=== PATIENT | female | born 1970 | race Caucasian/White ===

== ENCOUNTER → 2024-05-19 | Outpatient (CLI) | payer BC ==
[2024-05-19 14:39] VITALS: BP 144/73; PULSE 66; RESP 16; TEMP 98.3; BMI 22.0
--- NOTE | 2024-05-19 14:59 | P.HPBAR ---
Bariatric H&P - History & Physicial H&P Date: 05/19/24 History & Physicial: Visit/CC: f/u Patient initial contact: Initial weight: Initial weight in pounds: Height: 5 ft 8 in Initial BMI: Last weight: Current weight: 65.771 kg Current weight in pounds: 145.00 Current BMI: 22.0 [place] body weight (based on NIH guidelines): 63.503 kg Excess body weight loss: The patient is a 53 year-old F who presents for Bariatric Assessment. She had bypass 12 years ago and had obstruction. She has been doing well. She needs colonoscopy. Highest weight 270 pounds. She got had weight gain with gestational diabetes. Gallbladder was out. She was on insulin. No more insulin. Pain at the left upper quadrant. Surgery 08/05/12. She is 12 years. Recommend labs. Her B12 is low. She has redundant skin, grade 3. Needs CT scan. Needs lysis of adhesions. She was prescribed depression. Needs colonoscopy. EGD. History of bowel obstruction with similar symptoms. Past Medical History Past Medical History: Diabetes Mellitus, GERD/Reflux Additional Past Medical History / Comment(s): Diabetic before gastric bypass History of Any Multi-Drug Resistant Organisms: None Reported Past Surgical History: Bariatric Surgery, Cholecystectomy, Tubal Ligation Additional Past Surgical History / Comment(s): Gastric Bypass 2011, Twisted Bowel- surgically fixed, shoulder manipulation rt Past Anesthesia/Blood Transfusion Reactions: Postoperative Nausea & Vomiting (PONV) Past Psychological History: No Psychological Hx Reported Smoking Status: Former smoker Past Alcohol Use History: Occasional Past Drug Use History: Marijuana - Past Family History Mother Family Medical History: Hypertension Father Family Medical History: Cancer Additional Family Medical History / Comment(s): esophageal CA Surgical - Exam Vital Signs Temp Pulse Resp BP 98.3 F 66 16 144/73 05/19/24 14:24 05/19/24 14:24 05/19/24 14:24 05/19/24 14:24 Bariatric Checklist Checklist: Plan: Checklist: EGD: 1. Hiatal hernia: 2. H. Pylori: HgbA1c: Vitamin D: Smoking: Primary care physician referral: iman campos ORDNANCE ENGINEERING TECHNICIAN for Dr. Monteiro Psychiatry clearance: Cardiology clearance: Sleep study: Diet journal: VTE risk score: VTE risk level: Rehab needs at discharge:
[2024-05-19 16:34] LABS: INR 0.9 (<1.2); Partial Thromboplastin Time 22.6 sec (22.0-30.0); Prothrombin Time 10.2 sec (10.0-12.5)
[2024-05-20 02:14] LABS: HCT 35.6 % (37.2-46.3); HGB 10.4 g/dL (12.0-15.0); MCH 23.7 pg (27.0-32.0); MCHC 29.2 g/dL (32.0-37.0); MCV 81.3 FL (80.0-97.0); Mean Platelet Volume 10.3 FL (9.5-12.2); NRBC Per 100 WBC 0 X 10*3/uL (0.00-0.01); Platelet Count 465 X 10*3/uL (140-440); RBC 4.38 X 10*6/uL (4.10-5.20); RDW 17.4 % (11.5-14.5); WBC 8.84 X 10*3/uL (4.50-10.00)
[2024-05-20 03:34] LABS: Prealbumin 21.2 mg/dL (18.0-42.0)
[2024-05-20 04:10] LABS: % Iron Saturation 2.26 (12.00-45.00); ALT 21 U/L (8-44); AST 26 U/L (13-35); Albumin 4.4 g/dL (3.8-4.9); Albumin/Globulin Ratio 1.76 Ratio (1.60-3.17); Alkaline Phosphatase 53 U/L (41-126); Blood Urea Nitrogen 8.4 mg/dL (9.0-27.0); Calcium 9.3 mg/dL (8.7-10.3); Carbon Dioxide 25.3 mmol/L (21.6-31.8); Chloride 104 mmol/L (96-109); Chol/HDL Ratio 2.78 Ratio; Ferritin 5.5 ng/mL (10.0-291.0); Globulin 2.5 g/dL (1.6-3.3); Glucose 80 mg/dL (70-110); Iron 13 UG/DL (50-170); LDL Cholesterol,Calculated 96.7 mg/dL (0.0-131.0); Phosphorus 3.7 mg/dL (2.4-5.1); Potassium 4.6 mmol/L (3.5-5.5); Sodium 141 mmol/L (135-145); Total Bilirubin 0.2 mg/dL (0.3-1.2); Total Iron Binding Capacity 575 UG/DL (228-460); Total Protein 6.9 g/dL (6.2-8.2)
[2024-05-21 11:37] LABS: Vitamin A 44 ug/dL (38-106)
[2024-05-21 11:43] LABS: Vit B1(Thiamine) 50 ug/L (38-122)
[2024-05-22 10:19] LABS: Anabasine Urine <2.0 ng/mL (<2.0)
[2024-05-28 15:13] LABS: Zinc, Serum 53 ug/dL (60-130)
== END ==
LOC: BARWHC3 13:57
PROVIDERS: ATTEND Surgery Plastic and Reconstructive Surgery
DX: E66.01 Morbid (severe) obesity due to excess calories (principal); D50.8 Other iron deficiency anemias; E89.1 Postprocedural hypoinsulinemia; K90.89 Other intestinal malabsorption; K74.1 Hepatic sclerosis; E55.9 Vitamin D deficiency, unspecified; N19 Unspecified kidney failure; R00.1 Bradycardia, unspecified; T56.894A Toxic effect of other metals, undetermined, initial encounter; K50.90 Crohn's disease, unspecified, without complications; Z87.891 Personal history of nicotine dependence; Z98.84 Bariatric surgery status; Z68.22 Body mass index [BMI] 22.0-22.9, adult
CPT/HCPCS: 84134; 84425; 80061; 80053; 82607; 82728; 82525; 82746; 83540; 83550; 83735; 84100; 84443; 84590; 84630; 85027; 85610; 85730; 82306; 83970; 83036; 80307; 93005; G0480; G0463; 80323; 99202

== ENCOUNTER → 2024-05-28 | Outpatient (CLI) | payer BC ==
--- NOTE | 2024-05-28 09:38 | CT ---
EXAMINATION TYPE: CT abdomen pelvis w con CT DLP: 526 mGycm, Automated exposure control for dose reduction was used. DATE OF EXAM: 05/28/2024 9:10 AM COMPARISON: CT abdomen pelvis most recent from CLINICAL INDICATION: Female, 53 years old with history of K56.609 UNSP INTESTNL OBST, UNSP TO PART IAL KARELY; History of bariartric surgery, twisted bowel. pain TECHNIQUE: Axial CT abdomen pelvis w con;Sagittal and coronal reformats were created on a separate w orkstation. Contrast used:100 mL of Isovue 300 with IV Contrast, (none if empty) Oral contrast used: with Oral Contrast (none if empty) FINDINGS: LOWER CHEST: Unremarkable ABDOMEN LIVER: Unremarkable GALLBLADDER AND BILE DUCTS: Cholecystectomy clips present. Mild central pneumobilia PANCREAS: Unremarkable. SPLEEN: Unremarkable. ADRENAL GLANDS: Unremarkable. KIDNEYS AND URETERS: No evidence of hydronephrosis or renal calculus. The ureters are unremarkable. PELVIS BLADDER: Unremarkable REPRODUCTIVE: Unremarkable. ABDOMEN & PELVIS STOMACH AND BOWEL: Postsurgical changes to the stomach and small bowel. No evidence for obstruction. No evidence of bowel obstruction. PERITONEUM/RETROPERITONEUM: No evidence of pneumoperitoneum or free fluid. VASCULATURE: Mild atherosclerotic calcifications are present throughout the abdominal aorta and its b ranches. No evidence of aortic aneurysm. MUSCULOSKELETAL: No acute osseous abnormalities LYMPH NODES: No gross evidence for lymphadenopathy. SOFT TISSUE/ABDOMINAL WALL: Unremarkable IMPRESSION: 1. Post surgical changes to the stomach and small bowel compatible with history of bariatric surgery . No evidence for obstruction or acute processes definitively visualized. 2. Mild central pneumobilia correlate for patulous sphincter oddi. [facility], , 05/28/2024 9:35 AM
== END | disposition home or self-care (01) ==
LOC: RADCTMAIN 07:21
PROVIDERS: ATTEND Surgery Plastic and Reconstructive Surgery
DX: K56.609 Unspecified intestinal obstruction, unspecified as to partial versus complete obstruction (principal); Z98.84 Bariatric surgery status
CPT/HCPCS: 74177; Q9967

== ENCOUNTER → 2024-06-02 | Outpatient (CLI) | payer BC ==
[2024-06-02 17:10] VITALS: BP 124/71; PULSE 63; RESP 16; TEMP 98; BMI 21.9
--- NOTE | 2024-06-02 17:18 | P.BASOAP ---
Subjective Progress Note Date: 06/02/24 Labs reviewed. Needs iron infusions for extremely low iron. Vitamin D. Zinc 50 mcg. Has intussception on CT scan. Needs lysis of adhesions. Needs EGD and colonoscopy. Objective - Vital Signs Vital signs: Vital Signs Temp 98.0 F 06/02/24 17:06 Pulse 63 06/02/24 17:06 Resp 16 06/02/24 17:06 BP 124/71 06/02/24 17:06 Pulse Ox FiO2 Intake & Output 06/01/24 06/02/24 06/02/24 18:59 06:59 18:59 Weight 65.317 kg Assessment/Plan Plan: Date: 06/02/24 Initial Weight: Initial BMI: Current Weight: 65.317 kg Current BMI: 21.9 Type of Surgery: Total Volume in Band: Previous Volume: Volume Removed: Volume Added: Band Size:
== END ==
LOC: BARWHC3 15:09
PROVIDERS: ATTEND Surgery Plastic and Reconstructive Surgery
DX: E66.01 Morbid (severe) obesity due to excess calories (principal); Z68.21 Body mass index [BMI] 21.0-21.9, adult
CPT/HCPCS: 99211

== ENCOUNTER 2024-06-28 06:29 | Day surgery (SDC) | payer BC ==
[2024-06-28 07:19] VITALS: TEMP 97.3
[2024-06-28] MEDS: IV FLUID CONTINUATION 1,000 ML IV ONE (07:20)
[2024-06-28] MEDS: ONDANSETRON 4 MG/2 ML VIAL IVP STA (07:21)
[2024-06-28] MEDS: LACTATED RINGERS 1,000 ML IV SCH (07:22)
[2024-06-28] MEDS ORDERED: LIDOCAINE 1% INJ 10MG/ML (20 ML MDV) ONE (07:41)
[2024-06-28] MEDS ORDERED: PROPOFOL 10 MG/ML 20 ML VIAL IV ONE (07:41)
--- NOTE | 2024-06-28 07:46 | P.GSHP ---
History of Present Illness H&P Date: 06/28/24 CHIEF COMPLAINT: GERD and colon screen HISTORY OF PRESENT ILLNESS: The patient is a 53-year-old female who presents with gastroesophageal reflux disease and need for colon screen. Upper and lower endoscopy were offered for further evaluation and management. PAST MEDICAL HISTORY: Please see list. PAST SURGICAL HISTORY: Please see list. MEDICATIONS: Please see list. ALLERGIES: Please see list. SOCIAL HISTORY: No illicit drug use FAMILY HISTORY: No reports of Crohn disease or ulcerative colitis. REVIEW OF ORGAN SYSTEMS: CONSTITUTIONAL: No reports of fevers or chills. GI: Denies any blood in stools or constipation. PHYSICAL EXAM: VITAL SIGNS: Stable GENERAL: Well-developed pleasant in no acute distress. HEENT: No scleral icterus. Extraocular movements grossly intact. Moist buccal mucosa. NECK: Supple without lymphadenopathy. CHEST: Unlabored respirations. Equal bilateral excursions. CARDIOVASCULAR: Regular rate and rhythm. Distal 2+ pulses. ABDOMEN: Soft, nondistended. MUSCULOSKELETAL: No clubbing, cyanosis, or edema. ASSESSMENT: 1. Gastroesophageal reflux disease 2. Colon screen. PLAN: 1. Recommend proceeding with an upper and lower endoscopy Past Medical History Past Medical History: GERD/Reflux Additional Past Medical History / Comment(s): hx of type 2 diabetes before gastric bypass ( 12 yrs ago) no meds since.. abd pain "twisted up" after gastric bypass. hx of anemia had iron transfusion 06/22/24 and vitamin B12 shot. aches and pains. History of Any Multi-Drug Resistant Organisms: None Reported Past Surgical History: Bariatric Surgery, Cholecystectomy, Tubal Ligation Additional Past Surgical History / Comment(s): Gastric Bypass 2011, Twisted Bowel- surgically fixed, shoulder manipulation rt Past Anesthesia/Blood Transfusion Reactions: Postoperative Nausea & Vomiting (PONV) Smoking Status: Former smoker, Light tobacco smoker - Past Family History Mother Family Medical History: Hypertension Father Family Medical History: Cancer, Coronary Artery Disease (CAD) Additional Family Medical History / Comment(s): esophageal CA Medications and Allergies Home Medications Medication Instructions Recorded Confirmed Type Cholecalciferol (Vitamin D3) 125 mcg PO DAILY 06/22/24 06/24/24 History [Vitamin D3 (125 MCG = 5,000 IU)] Zinc Gluconate [Zinc] 50 mg PO DAILY 06/22/24 06/24/24 History C-[employer] Nutrition Collagen 1 scoop PO DAILY 06/24/24 06/24/24 History Allergies Allergy/AdvReac Type Severity Reaction Status Date / Time No Known Allergies Allergy Verified 06/28/24 07:18 Surgical - Exam Vital Signs Temp Pulse Resp BP Pulse Ox 97.3 F L 59 L 16 128/76 99 06/28/24 07:18 06/28/24 07:18 06/28/24 07:18 06/28/24 07:18 06/28/24 07:18
--- NOTE | 2024-06-28 08:24 | P.PCN ---
Date of Procedure: 06/28/24 Description of Procedure: PREOPERATIVE DIAGNOSIS: Colonoscopy screening. POSTOPERATIVE DIAGNOSIS: Colonoscopy screening. Diverticulosis, scattered. OPERATION: Colonoscopy to the cecum, ileocecal valve and appendiceal orifice. SURGEON: Cecilia Aldrich MD. ANESTHESIA: MAC. INDICATIONS: The patient is a 53-year-old female who presents for colonoscopy screening. Benefits and risks were described and informed consent was obtained. DESCRIPTION OF PROCEDURE: The patient had undergone Sutab prep. The patient had been brought into the operating room and laid in the left lateral decubitus position. After adequate intravenous sedation, the rectum was examined with 2% lidocaine jelly. No external hemorrhoids were encountered. The rectal tone was within normal limits. No lesions were palpated in the rectal vault. An Olympus colonoscope was advanced until the cecum, ileocecal valve and appendiceal orifice were clearly viewed. The prep was excellent. Scattered diverticulosis was encountered. No colonic polyps were found. No evidence of focal colitis was found. Retroflexion of the scope demonstrated grade 1 internal hemorrhoids without active bleeding or inflammation. The colon was desufflated. The patient had tolerated the procedure well. Withdrawal time was over 6 minutes. FINDINGS: Aronchick preparation quality scale 1 (1-5) Internal hemorrhoids, grade 1 No external prolapsed hemorrhoids. No arteriovenous malformations. No adenomatous polyps. No focal colitis. Sigmoid diverticulosis RECOMMENDATIONS: Lower endoscopy in 5 years, 2028 Plan - Discharge Summary Discharge Rx Participant: No New Discharge Prescriptions: Continue Cholecalciferol (Vitamin D3) [Vitamin D3 (125 MCG = 5,000 IU)] 125 mcg PO DAILY Zinc Gluconate [Zinc] 50 mg PO DAILY Unk Ancient Nutrition Collagen 1 scoop PO DAILY Discharge Medication List Cholecalciferol (Vitamin D3) [Vitamin D3 (125 MCG = 5,000 IU)] 125 mcg PO DAILY 06/22/24 [History] Zinc Gluconate [Zinc] 50 mg PO DAILY 06/22/24 [History] Unk Ancient Nutrition Collagen 1 scoop PO DAILY 06/24/24 [History] [place]s[place]Ref[place] 07/14/24 3:00 pm Patient Instructions/Handouts: Diverticulosis Diet (GEN), Diverticulosis (ED), Peptic Ulcer (DC), Esophageal Dilation (DC) Activity/Diet/Wound Care/Special Instructions: Repeat colonoscopy 5 years, 2028 Discharge Disposition: HOME SELF-CARE
--- NOTE | 2024-06-28 08:26 | P.PCN ---
Date of Procedure: 06/28/24 Description of Procedure: PREOPERATIVE DIAGNOSIS: Dysphagia. Nausea with vomiting. POSTOPERATIVE DIAGNOSIS: Dysphagia. Gastrojejunal stricture with chronic ulcer without perforation OPERATION: Esophagogastrojejunoscopy with balloon dilatation from 18 to 20 mm. Esophagogastrojejunoscopy with cold forcep biopsies esophagus, gastric pouch, jejunum SURGEON: Cecilia Aldrich MD ANESTHESIA: MAC. INDICATIONS: The patient is a 53-year-old female who presents with a history of dysphagia, including new-onset nausea and vomiting. Benefits and risks of the procedure were described. Informed consent was obtained. DESCRIPTION: The patient was brought into the endoscopy suite and laid in the left lateral d ecubitus position. After a timeout was confirmed, the procedure was initiated. An Olympus gastroscope was passed along the posterior oropharynx down to the distal esophagus where the squamocolumnar junction was unremarkable. The gastric pouch was entered. A gastrojejunal stricture of 18 mm was found as the adult gastroscope was 9.5 mm in size. A [employer] balloon dilator was placed through the scope. Final insufflation up to 20 mm was performed with a total of 2 minutes. The scope was advanced up to 60 cm from the incisors into the Kelly limb. The mucosa of the gastrojejunal anastomosis was intact. Cold biopsies were obtained of the esophagus, gastric pouch and jejunum. However chronic gastrojejunal marginal ulcer was encountered. No full-thickness injury was encountered. The GI tract was desufflated. The patient tolerated the procedure well. FINDINGS: Squamocolumnar junction unremarkable at 37 cm. Stricture of approximately 18 mm encountered. Chronic gastrojejunal ulceration encountered at anastomosis, 2 mm x 2. Successful balloon dilatation to 20 mm. Blind jejunal limb 5 cm length Gastric pouch 2 cm in length Biopsies obtained of gastric pouch, esophagus, jejunum RECOMMENDATIONS: Omeprazole and Carafate for 4 weeks Upper endoscopy as needed.
[2024-06-28 08:45] VITALS: BP 108/69; PULSE 54; RESP 20
== END 2024-06-28 09:09 | disposition home or self-care (01) ==
LOC: ORWHC2ENDO 06:29
PROVIDERS: ATTEND Surgery Plastic and Reconstructive Surgery
DX: Z12.11 Encounter for screening for malignant neoplasm of colon (principal); K29.50 Unspecified chronic gastritis without bleeding; K31.7 Polyp of stomach and duodenum; K56.699 Other intestinal obstruction unspecified as to partial versus complete obstruction; K21.9 Gastro-esophageal reflux disease without esophagitis; K57.30 Diverticulosis of large intestine without perforation or abscess without bleeding; K64.0 First degree hemorrhoids; E11.9 Type 2 diabetes mellitus without complications; Z82.49 Family history of ischemic heart disease and other diseases of the circulatory system; Z87.891 Personal history of nicotine dependence; Z90.49 Acquired absence of other specified parts of digestive tract; Z98.51 Tubal ligation status; Z98.84 Bariatric surgery status
CPT/HCPCS: 81025; 88305; 45378; 43239; 43245; J2405; J2003; J2704; C1726; 43249

== ENCOUNTER → 2024-07-14 | Outpatient (CLI) | payer BC ==
[2024-07-14 15:27] VITALS: BMI 21.6
[2024-07-14 15:28] VITALS: BP 113/72; PULSE 59; RESP 16; TEMP 98.1
--- NOTE | 2024-07-14 16:12 | P.BASOAP ---
Subjective Progress Note Date: 07/14/24 Decreased sticking . EGD reviewed. Getting infusions. B-complex supplement needed. No heartburn. Weight is stable. Protein is 16 to 20 grams. She states she does not eat. Needs structured environment. Has consitent pain, needs lysis of adhesions. Objective - Vital Signs Vital signs: Vital Signs Temp 98.1 F 07/14/24 15:19 Pulse 59 L 07/14/24 15:19 Resp 16 07/14/24 15:19 BP 113/72 07/14/24 15:19 Pulse Ox FiO2 Intake & Output 07/13/24 07/14/24 07/14/24 18:59 06:59 18:59 Weight 64.41 kg Assessment/Plan Plan: Date: 07/14/24 Initial Weight: Initial BMI: Current Weight: 64.41 kg Current BMI: 21.6 Type of Surgery: Total Volume in Band: Previous Volume: Volume Removed: Volume Added: Band Size:
== END ==
LOC: BARWHC3 14:43
PROVIDERS: ATTEND Surgery Plastic and Reconstructive Surgery
DX: E66.01 Morbid (severe) obesity due to excess calories (principal); Z68.21 Body mass index [BMI] 21.0-21.9, adult
CPT/HCPCS: 99211

== ENCOUNTER → 2024-08-05 | Outpatient (CLI) | payer BC ==
[2024-08-05 19:12] LABS: HCT 43.7 % (37.2-46.3); HGB 13.8 g/dL (12.0-15.0); MCH 27.9 pg (27.0-32.0); MCHC 31.6 g/dL (32.0-37.0); MCV 88.5 FL (80.0-97.0); Mean Platelet Volume 9.6 FL (9.5-12.2); NRBC Per 100 WBC 0 X 10*3/uL (0.00-0.01); Platelet Count 365 X 10*3/uL (140-440); RBC 4.94 X 10*6/uL (4.10-5.20); RDW 23.1 % (11.5-14.5); WBC 8.51 X 10*3/uL (4.50-10.00)
[2024-08-05 19:32] LABS: % Iron Saturation 23.57 (12.00-45.00); ALT 26 U/L (8-44); AST 28 U/L (13-35); Albumin 4.4 g/dL (3.8-4.9); Albumin/Globulin Ratio 1.63 Ratio (1.60-3.17); Alkaline Phosphatase 52 U/L (41-126); Blood Urea Nitrogen 11.5 mg/dL (9.0-27.0); Calcium 9.5 mg/dL (8.7-10.3); Chloride 104 mmol/L (96-109); Ferritin 55.1 ng/mL (10.0-291.0); Globulin 2.7 g/dL (1.6-3.3); Glucose 99 mg/dL (70-110); Iron 95 UG/DL (50-170); Potassium 4.5 mmol/L (3.5-5.5); Sodium 142 mmol/L (135-145); Total Bilirubin 0.3 mg/dL (0.3-1.2); Total Iron Binding Capacity 403 UG/DL (228-460); Total Protein 7.1 g/dL (6.2-8.2)
[2024-08-05 19:46] LABS: Anisocytosis (M) 2+ (None Seen); Basophils # (A) 0.05 X 10*3/uL (0.00-0.10); Basophils % (A) 0.6 %; Eosinophils # (A) 0.15 X 10*3/uL (0.04-0.35); Eosinophils % (A) 1.8 %; Lymphocytes # (A) 2.75 X 10*3/uL (0.90-5.00); Lymphocytes % (A) 32.3 %; Monocytes # (A) 0.56 X 10*3/uL (0.20-1.00); Monocytes % (A) 6.6 %; Neutrophils # (A) 4.99 X 10*3/uL (1.80-7.70); Neutrophils % (A) 58.6 %
== END | disposition home or self-care (01) ==
LOC: LABPAT 13:25
PROVIDERS: ATTEND Surgery Plastic and Reconstructive Surgery
DX: Z01.818 Encounter for other preprocedural examination (principal); E61.1 Iron deficiency
CPT/HCPCS: 80053; 82728; 83540; 83550; 85025; 86850; 86900; 86901

== ENCOUNTER 2024-08-16 09:47 | Day surgery (SDC) | payer BC ==
[~2024-08-16 09:47] MED LIST: HYDROmorphone 0.5 MG/0.5 ML SYRINGE IVP PRN; LIDOCAINE 1% (10MG/ML) FOR IV START INTRADERMA PRN; Pre Op ABX Message 1 EACH MISC MISCELLANE ONE; droPERidol 5 MG/2 ML VIAL IVP ONE
[2024-08-16] MEDS: IV FLUID CONTINUATION 1,000 ML IV ONE (10:35)
[2024-08-16] MEDS: LACTATED RINGERS 1,000 ML IV SCH (10:35)
[2024-08-16] MEDS: DEXAMETHASONE SOD PHOSPHATE 4 MG/ML 1 ML VIAL IV ONE (10:40)
[2024-08-16] MEDS: SCOPOLAMINE 1 MG/72 HR PATCH TRANSDERM ONE (10:40)
[2024-08-16] MEDS: ONDANSETRON 4 MG/2 ML VIAL IVP ONE (10:41)
[2024-08-16 10:47] VITALS: TEMP 97.8
[2024-08-16] MEDS: ACETAMINOPHEN TAB 500 MG TAB PO STA (11:53)
[2024-08-16] MEDS: HEPARIN SODIUM,PORCINE 5,000 UNIT/ML 1 ML VIAL SQ STA (11:54)
[2024-08-16] MEDS ORDERED: ROCURONIUM 10 MG/ML (5 ML VIAL) IV ONE (12:03)
[2024-08-16] MEDS ORDERED: SUCCINYLCHOLINE CHLORIDE 200 MG/10 ML VIAL IV ONE (12:03)
[2024-08-16] MEDS ORDERED: GLYCOPYRROLATE 0.2 MG/ML 2 ML VIAL ONE (12:03)
[2024-08-16] MEDS ORDERED: fentaNYL (PF) 50 MCG/ML 2 ML AMP ONE (12:03)
[2024-08-16] MEDS ORDERED: PHENYLEPHRINE-0.9% NACL SYG 1,000 MCG/10 ML SYRINGE ONE (12:03)
[2024-08-16] MEDS ORDERED: MIDAZOLAM 2 MG/2 ML VIAL ONE (12:03)
[2024-08-16] MEDS ORDERED: HYDROmorphone (PF) 1 MG/ML ONE (12:03)
[2024-08-16] MEDS ORDERED: ceFAZolin 1 GM/50 ML BAG (PMX) ONE (12:03)
[2024-08-16] MEDS ORDERED: PROPOFOL 10 MG/ML 20 ML VIAL IV ONE (12:03)
[2024-08-16] MEDS ORDERED: LIDOCAINE 1% INJ 10MG/ML (20 ML MDV) ONE (12:03)
[2024-08-16] MEDS ORDERED: NEOSTIGMINE 1 MG/ML 10 ML VIAL ONE (12:03)
[2024-08-16] MEDS: ceFAZolin 1,000 MG VIAL IVPB ONE (12:30)
[2024-08-16] MEDS: LIDOCAINE 1%-EPI 1:100,000 20 ML VIAL SQ ONE ×2 (12:39)
[2024-08-16] MEDS: LACTATED RINGERS 1,000 ML IV ONE ×2 (13:24→15:51)
[2024-08-16 13:49] VITALS: RESP 16
[2024-08-16] MEDS: KETOROLAC 15 MG/ML 1 ML VIAL IVP STA (13:55)
--- NOTE | 2024-08-16 14:04 | P.GSHP ---
History of Present Illness H&P Date: 08/16/24 CHIEF COMPLAINT: History of intra-abdominal adhesions HISTORY OF PRESENT ILLNESS: The patient is a 53-year-old female who presents with history of intra-abdominal adhesions from multiple prior surgeries including increasing abdominal pain for over 3 months. She has personal history of gastric bypass as well. She complains primarily of left upper quadrant pain as well as right lower quadrant and periumbilical pain. She now presents for diagnostic laparoscopy including lysis of adhesions. PAST MEDICAL HISTORY: Please see list. PAST SURGICAL HISTORY: Please see list. MEDICATIONS: Please see list. ALLERGIES: Please see list. SOCIAL HISTORY: No illicit drug use FAMILY HISTORY: No reports of Crohn disease or ulcerative colitis. REVIEW OF ORGAN SYSTEMS: CONSTITUTIONAL: Denies any fever or chills. Intentional weight loss following gastric bypass over 150 pounds. HEENT: Denies any trouble with vision, hearing or nosebleeds. No difficulty swallowing. LYMPHATIC: The patient denies any lumps and bumps around the neck. ENDOCRINE: Denies any thyroid disorders. Denies any blood sugar glucose intolerance. RESPIRATORY: Denies pneumonia. Denies any troubles with breathing or dyspnea on exertion. CARDIOVASCULAR: Denies any chest pain, palpitations, or recent heart attacks. GASTROINTESTINAL: Has change in bowel habits. History of gastric bypass. GENITOURINARY: Denies any blood in urine or increased urinary frequency. MUSCULOSKELETAL: Denies any back pain, stiffness, joint arthritis. NEUROLOGIC: Denies any numbness or tingling along the distal extremities. No seizure disorders or headaches. PSYCHIATRIC: Denies depression or suidical ideation. HEMATOLOGIC: Denies any abnormal bleeding or bruising. BREASTS: Denies any breast lumps, pain or nipple discharge. PHYSICAL EXAM: GENERAL: Well-developed pleasant male in no acute distress. HEENT: No scleral icterus. Extraocular movements grossly intact. Moist buccal mucosa. NECK: Supple without lymphadenopathy. CHEST: Unlabored respirations. Equal bilateral excursions. CARDIOVASCULAR: Regular rate and rhythm. Distal 2+ pulses. ABDOMEN: Soft, nondistended. Moderate skin redundancy. Tender at the left upper chest wall upper abdomen, periumbilical, right lateral abdominal wall. MUSCULOSKELETAL: No clubbing, cyanosis, or edema. SKIN: Well perfused. PSYCH: Alert and oriented to self, place and time ASSESSMENT: 1. Diffuse abdominal pain. 2. History of multiple abdominal surgeries. 3. Intra-abdominal adhesions. PLAN: 1. Robotic lysis of adhesions were described in detail including risk of injury to the intestine, need for further surgery, and open technique. 2. DVT prophylaxis. 3. Antibiotic prophylaxis. Past Medical History Past Medical History: GERD/Reflux Additional Past Medical History / Comment(s): hx of type 2 diabetes before gastric bypass ( 12 yrs ago) no meds since.. abd pain "twisted up" after gastric bypass. hx of anemia had iron transfusion 06/22/24 and vitamin B12 shot. aches and pains. History of Any Multi-Drug Resistant Organisms: None Reported Past Surgical History: Bariatric Surgery, Cholecystectomy, Tubal Ligation Additional Past Surgical History / Comment(s): Gastric Bypass 2011, Twisted Bowel- surgically fixed, shoulder manipulation rt Past Anesthesia/Blood Transfusion Reactions: Postoperative Nausea & Vomiting (PONV) Smoking Status: Former smoker - Past Family History Mother Family Medical History: Hypertension Father Family Medical History: Cancer, Coronary Artery Disease (CAD) Additional Family Medical History / Comment(s): esophageal CA Medications and Allergies Home Medications Medication Instructions Recorded Confirmed Type Cholecalciferol (Vitamin D3) 125 mcg PO DAILY 06/22/24 08/12/24 History [Vitamin D3 (125 MCG = 5,000 IU)] Zinc Gluconate [Zinc] 50 mg PO DAILY 06/22/24 08/12/24 History Unk Ancient Nutrition Collagen 1 scoop PO DAILY 06/24/24 08/12/24 History Cyanocobalamin [Vitamin B-12 1,000 mcg SQ QMONTHLY 08/12/24 08/12/24 History Injection] Acetaminophen Tab [Tylenol Tab] 1,000 mg PO Q6HR PRN #30 tablet 08/16/24 Rx Cyclobenzaprine [Flexeril] 10 mg PO TID #30 tab 08/16/24 Rx Simethicone [Gas-X] 125 mg PO AC-TID PRN #20 capsule 08/16/24 Rx Allergies Allergy/AdvReac Type Severity Reaction Status Date / Time No Known Allergies Allergy Verified 08/16/24 10:19 Surgical - Exam Vital Signs Temp Pulse Resp BP Pulse Ox 97.8 F 65 18 93/63 99 08/16/24 10:31 08/16/24 10:31 08/16/24 10:31 08/16/24 10:31 08/16/24 10:31
[2024-08-16 16:04] VITALS: BP 111/63; PULSE 62
--- NOTE | 2024-08-16 16:54 | P.OP ---
Date of Procedure: 08/16/24 Description of Procedure: SURGEON: SONU GURROLA MD SANDWICH PEDDLER: SCOOTER PREOPERATIVE DIAGNOSES: 1. Epigastric abdominal pain 2. Left upper quadrant abdominal pain 3. History of gastric bypass 4. Left upper back pain 5. Gastroesophageal reflux disease 6. History of internal hernia 7. Postop nausea vomiting 8. Iron deficiency anemia 9. Right sided abdominal pain POSTOPERATIVE DIAGNOSES: 1. Epigastric abdominal pain due to recent internal hernia 2. Left upper quadrant abdominal pain, due to mesenteric internal hernia 3. History of gastric bypass 4. Left upper back pain due to highly redundant splenic flexure 5. Gastroesophageal reflux disease 6. History of internal hernia 7. Postop nausea vomiting 8. Iron deficiency anemia 9. Right sided abdominal pain 10. Small bowel volvulus OPERATION: 1. Robotic-assisted da Chang Xi laparoscopic closure of internal hernia, je junojejunostomy mesenteric defect, left abdomen 2. Robotic-assisted da Chang Xi laparoscopic reduction of small bowel volvulus ESTIMATED BLOOD LOSS: 5 mL. SPECIMENS REMOVED: None. COMPLICATIONS: None. OPERATIVE FINDINGS: 1. No ventral hernias identified. 2. Presence of internal hernia left upper quadrant at jejunojejunostomy 3. Long mesentery of the small bowel with small bowel volvulus reduced 4. Complete scarring of Dickson defect 5. Moderately dilated splenic flexure including transverse colon. 6. Presence of redundant sigmoid colon for sigmoid volvulus risk. 7. Widely open jejunojejunostomy mesenteric defect closed using green 2-0 V- Loc. 8. Normal terminal ileum and cecum unremarkable. 9. Appendix unremarkable. 10. Moderately elongated small bowel mesentery with risk for small bowel volvulus. 11. Petersons defect close mesentery INDICATIONS: The patient is a 53-year-old female who presents with severe left upper back, left upper abdominal including epigastric abdominal pain. She reports pre-existing history of internal hernia with twisted bowel. Surgical intervention with diagnostic laparoscopy, lysis of adhesions were described. Informed consent was obtained. Robotic assisted laparoscopic approach was described. Benefits and risks of the procedure including but not limited to bleeding, infection, injury to the small bowel was described. Informed consent was obtained. DESCRIPTION OF PROCEDURE: Patient was brought to the operating room, placed in supine position. After general induction, the abdomen had been prepped and draped in standard sterile fashion. The robotic da Chang XI system was primed. After a timeout protocol was performed, the patient had been prepped and draped in standard sterile fashion. The robot was docked along the right lateral abdomen. The patient was repositioned in with right side up. Please note prior to docking of the robot; however, a 5 mm 0 degrees laparoscopic trocar entry was performed along the left upper quadrant. The abdomen was insufflated to 15 mmHg pressure which she tolerated well. Diagnostic laparoscopy was performed. Next, three 8 mm robotic ports were placed along the right lateral abdominal wall. The camera 8-mm port was maintained along mid-lateral abdomen. Please note that the ports were placed at least 10 to 15 cm away from the target anatomy. Instruments including graspers and vessel sealer were interchanged by the trust operations assistant. I had sat at the console. No incisional hernia was identified. The small bowel was investigated from the terminal ileum to the ligament of Treitz with finding of highly redundant mesentery with active small bowel volvulus involving the jejunum to the jejunojejunostomy mesenteric defect. The mesentery small bowel volvulus was reduced. Petersons defect was obliterated. No herniation of bowel was found along the Dickson defect. Herniation of bowel was found of jejunojejunostomy mesenteric defect. The 5 mm trocar at the left upper quadrant was upsized to a 12 mm trocar by the trust operations assistant. A green 6 inch 2-0 V-Loc was used to close the jejunojejunostomy mesenteric defect. Highly redundant sigmoid colon was identif ied without active sigmoid volvulus. The terminal ileum and cecum was unremarkable. The small bowel was viable.The robot was undocked. All pneumoperitoneum instruments were evacuated from the abdominal cavity. The incisions were reapproximated using 4-0 Monocryl in an interrupted subcuticular fashion. Please note along the trocar sites, local anesthetic was placed as a field block prior to insertion of all instruments. Dermabond was applied to the skin. At the end of the procedure needle, sponge, and instrument count had been verified correct by the surgical first assistant. The patient was transferred to postanesthesia care unit in stable condition. Plan - Discharge Summary Discharge Rx Participant: Yes New Discharge Prescriptions: New Acetaminophen Tab [Tylenol Tab] 1,000 mg PO Q6HR PRN #30 tablet PRN Reason: Pain Cyclobenzaprine [Flexeril] 10 mg PO TID #30 tab Simethicone [Gas-X] 125 mg PO AC-TID PRN #20 capsule PRN Reason: Pain Continue Cholecalciferol (Vitamin D3) [Vitamin D3 (125 MCG = 5,000 IU)] 125 mcg PO DAILY Cyanocobalamin [Vitamin B-12 Injection] 1,000 mcg SQ QMONTHLY Zinc Gluconate [Zinc] 50 mg PO DAILY Unk [employer] Nutrition Collagen 1 scoop PO DAILY Discharge Medication List Cholecalciferol (Vitamin D3) [Vitamin D3 (125 MCG = 5,000 IU)] 125 mcg PO DAILY 06/22/24 [History] Zinc Gluconate [Zinc] 50 mg PO DAILY 06/22/24 [History] Unk [employer] Nutrition Collagen 1 scoop PO DAILY 06/24/24 [History] Cyanocobalamin [Vitamin B-12 Injection] 1,000 mcg SQ QMONTHLY 08/12/24 [History] Acetaminophen Tab [Tylenol Tab] 1,000 mg PO Q6HR PRN #30 tablet 08/16/24 [Rx] Cyclobenzaprine [Flexeril] 10 mg PO TID #30 tab 08/16/24 [Rx] Simethicone [Gas-X] 125 mg PO AC-TID PRN #20 capsule 08/16/24 [Rx] Follow up [facility]ment(s[facility]Ref[facility] [place] [facility] 08/20/24 9:00 am Patient Instructions/Handouts: *Sur[facility] - (Anesthesia) Discharge Instructions Outpatient Surgery, *Surgery [facility] - Scopalamine Patch Instructions, Lysis of Abdominal Adhesions (DC) Activity/Diet/Wound Care/Special Instructions: NO LONG DRIVES OR AIRPLANE RIDES OVER 60 MINUTES FOR THE NEXT 2 WEEKS, 08/30/24, DUE TO HIGH RISK OF PULMONARY EMBOLISM/DVTs May drive in 72 hrs, 08/19/24 No lifting over 10 pounds in 2 weeks until 08/30/24 May shower. No bath tub soaks for two weeks until 08/30/24, Diet as tolerated. Use Tylenol, simethicone for the next 24-48 hours for best pain relief. Use ice along incisions for today to prevent swelling. Discharge Disposition: HOME SELF-CARE
== END 2024-08-16 16:35 | disposition home or self-care (01) ==
LOC: OR 09:47
PROVIDERS: ATTEND Surgery Plastic and Reconstructive Surgery
DX: K46.9 Unspecified abdominal hernia without obstruction or gangrene (principal); K66.0 Peritoneal adhesions (postprocedural) (postinfection); M54.6 Pain in thoracic spine; K21.9 Gastro-esophageal reflux disease without esophagitis; K56.2 Volvulus; E11.9 Type 2 diabetes mellitus without complications; D50.9 Iron deficiency anemia, unspecified; Z90.49 Acquired absence of other specified parts of digestive tract; Z98.84 Bariatric surgery status; Z98.51 Tubal ligation status; Z87.891 Personal history of nicotine dependence; Z82.49 Family history of ischemic heart disease and other diseases of the circulatory system; Z79.899 Other long term (current) drug therapy
CPT/HCPCS: 49320; S2900; 81025